=== PATIENT | female | born 1945 | race African-American/Black ===

== ENCOUNTER 2020-11-02 06:54 | Emergency (ER) | payer OTHER, MEDICAID ==
[~2020-11-02] VITALS: Ht 172.7 cm; Wt 59.0 kg
[~2020-11-02 06:54] MED LIST: BENA20TA10 MT; METF-414 MT; SIMV-43 MT
[2020-11-02] MEDS ORDERED: ONDANSETRON HCL 4MG/2ML INJ IV STA (07:14)
[2020-11-02] MEDS ORDERED: MORPHINE SULFATE 4 MG/ML CPJ (NOT FOR IM USE) IV STA (07:14)
[2020-11-02] MEDS ORDERED: ACETAMINOPHEN 325MG TABLET PO ONE (07:15)
[2020-11-02] MEDS ORDERED: METOCLOPRAMIDE HCL 10MG/2ML VIAL IV ONE (07:15)
[2020-11-02] MEDS ORDERED: SODIUM CHLORIDE 0.9% 1,000 ML IV ONE (07:30)
[2020-11-02 08:44] LABS: BASOPHILS % 0.9 % (0.0-2.0); EOSINOPHILS % 0.4 % (0.0-5.0); HEMATOCRIT. 37.2 % (36.0-48.0); HEMOGLOBIN. 12.4 g/dL (12.0-16.0); LYMPHOCYTES % 20.8 % (20.0-50.0); MEAN CORPUSCULAR HEMOGLOBIN 29.6 pg (28.0-32.0); MEAN CORPUSCULAR VOLUME 88.7 fL (81.0-99.0); MEAN PLATELET VOLUME 8.2 fl (7.4-10.4); MONOCYTES % 4.6 % (2.0-8.0); NEUTROPHILS % 73.3 % (40.0-76.0); PLATELET 165 x1000/uL (130-400); RED BLOOD CELL COUNT 4.19 mill/uL (4.2-5.4); RED CELL DISTRIBUTION WIDTH 14.4 % (11.6-14.6)
[2020-11-02 08:50] LABS: CHLORIDE 111 mEq/L (98-107)
[2020-11-02 08:54] LABS: ETHANOL BLOOD < 10 mg/dL
[2020-11-02 08:59] LABS: BETA HYDROXYBUTYRATE 0.2 mMol/L (0.0-0.3)
[2020-11-02] MEDS ORDERED: IOHEXOL-300 100 ML BOTTLE ONE (10:16)
[2020-11-02 14:58] VITALS: BP 143/68
== END 2020-11-02 15:33 | disposition short-term general hospital (02) ==
LOC: ER 07:35 → CANBEDREQ 16:17
DX: K52.9 Noninfective gastroenteritis and colitis, unspecified (principal); R11.10 Vomiting, unspecified; E11.9 Type 2 diabetes mellitus without complications; I10 Essential (primary) hypertension; E78.00 Pure hypercholesterolemia, unspecified; Z79.84 Long term (current) use of oral hypoglycemic drugs
CPT/HCPCS: 36415; 70450; 74177; 80053; 80320; 82010; 83605; 83690; 85025; 96374; 96375; 99285; J2270; J2405; J2765; J7030; Q9967; G0480